=== PATIENT | male | born 1955 | race Caucasian/White ===

== ENCOUNTER → 2023-12-17 11:43 | Outpatient (REF) | payer OTHER, SELFPAY ==
[2023-12-17 15:36] LABS: % Basophils 0.9 % (0-2); % Eosinophils 0.9 % (0-6); % Immature Granulocytes 0.2 % (0-0.5); % Monocytes 8.7 % (1.7-9.3); % Neutrophils 58.3 % (42.2-75.2); Absolute Lymphocytes 1.4 10^3/uL (1.2-3.4); Absolute Monocytes 0.4 10^3/uL (0.1-0.6); Absolute Neutrophils 2.5 10^3/uL (1.4-6.5); Hematocrit 39.2 % (39.0-52.0); Mean Corp Hgb Conc. 35.7 g/dL (33.0-37.0); Mean Corpuscular Hgb 31.5 pg (27.0-31.0); Mean Corpuscular Volume 88.1 fL (80.0-94.0); Mean Platelet Volume 11.4 fL (7.4-10.4); Nucleated Red Blood Cells % 0 % (-); Platelet Count 199 10^3/uL (130-400); Red Blood Cell Count 4.45 10^6/uL (4.70-6.10); Red Cell Dist. Width 12.8 % (11.5-14.5); White Blood Cell Count 4.4 10^3/uL (4.8-10.8)
[2023-12-17 15:45] LABS: ALT (SGPT) 48 U/L (0-50); AST (SGOT) 42 U/L (17-59); Albumin 4.4 g/dl (3.5-5.0); Alkaline Phosphatase 89 U/L (38-126); Blood Urea Nitrogen 18 mg/dl (9-20); Calcium 9.3 mg/dl (8.4-10.2); Carbon Dioxide 28 mmol/L (22-30); Chloride 102 mmol/L (98-107); Glucose 102 mg/dl (70-99); HDL Cholesterol 65 mg/dl; LDL Cholesterol, Calculated 85 mg/dl; Potassium 3.1 mmol/L (3.5-5.1); Sodium 136 mmol/L (135-145); Total Bilirubin 0.9 mg/dl (0.2-1.3); Total Cholesterol 189 mg/dl (50-199); Total Protein 7.3 g/dl (6.3-8.2); Triglyceride 195 mg/dl (10-149); Very Low Density Lipoprotein 39 mg/dl (0-30); eGFR > 60.00
[2023-12-17 16:18] LABS: PSA, Total - Screen 9.26 ng/ml (0.0-4.0); TSH Reflex To Free T4 2.76 uIU/ml (0.47-4.68)
== END ==
LOC: HWLAB 11:43
PROVIDERS: ATTENDING PHYSICIAN Internal Medicine
DX: I25.10 Atherosclerotic heart disease of native coronary artery without angina pectoris (principal); Z12.5 Encounter for screening for malignant neoplasm of prostate; I10 Essential (primary) hypertension; E78.5 Hyperlipidemia, unspecified; Z00.00 Encounter for general adult medical examination without abnormal findings
CPT/HCPCS: 36415; 80053; 80061; 84443; 85025; G0103

== ENCOUNTER → 2024-02-20 12:59 | Outpatient (REF) | payer OTHER, SELFPAY | LOC: RAD 12:59 | PROVIDERS: ATTENDING PHYSICIAN Urology; FAMILY PHYSICIAN Internal Medicine; REFERRING PHYSICIAN Specialist | DX: S05.50XA Penetrating wound with foreign body of unspecified eyeball, initial encounter (principal) | CPT/HCPCS: 70030 ==

== ENCOUNTER → 2024-02-26 08:29 | Outpatient (REF) | payer OTHER, SELFPAY | LOC: MRI 3T 08:29 | PROVIDERS: ATTENDING PHYSICIAN Specialist; FAMILY PHYSICIAN Internal Medicine | DX: R97.20 Elevated prostate specific antigen [PSA] (principal) | CPT/HCPCS: 72197; A9575 ==

== ENCOUNTER 2024-03-13 06:08 | Day surgery (SDC) | payer OTHER, SELFPAY ==
--- NOTE | 2024-03-11 11:13 | CM ---
Patient is scheduled for a Robotic Prostatectomy on 03/13/24. Spoke with patient prior to surgery via telephone to complete case management assessment and assess for discharge planning needs. Patient reports that he lives alone in a one story
apartment. There are no steps to enter. He currently functions independently. He has no DME and has never had VN services. He has a prescription plan and uses [facility] in [place].
PCP is Shayna Toledo
Discussed discharge plans. Patient plans to return home at discharge. He states that either his daughter or sister will likely spend his first night home with him. He has no discharge planning concerns at this time. Discussed possible need for VN
services and he does not feel that services will be needed.
--- NOTE | 2024-03-11 13:33 | PTCARENOTE ---
Patients 12/16 potassium 3.1, Reviewed by Dr White whom suggested patient could use potassium supplement and labs to be repeated AM of surgery. Porsche @ Dr. Flores office notified of same and Dr. White suggestions forwarded.
[2024-03-13] VITALS (13 sets, daily range): BP systolic 109–135; BP diastolic 61–80; BMI 29.8
[2024-03-13 07:04] LABS: Potassium 3.7 mmol/L (3.5-5.1)
[2024-03-13 07:05] LABS: INR 1.01; PT 13.3 Sec (11.4-14.6)
[2024-03-13 07:06] LABS: APTT 29.9 Sec (23.4-35.0)
[2024-03-13] MEDS: NORMOSOL-R 1000 IV (07:06)
[2024-03-13] MEDS: DILAUDID 0.25 MG IV (13:18)
[2024-03-13 13:42] LABS: Hematocrit 36.6 % (39.0-52.0); Hemoglobin 13.1 g/dL (13.0-18.0)
[2024-03-13 13:56] LABS: Blood Urea Nitrogen 15 mg/dl (9-20); Calcium 8.5 mg/dl (8.4-10.2); Carbon Dioxide 27 mmol/L (22-30); Chloride 105 mmol/L (98-107); Estimated Creatinine Clearance 70 ml/min; Glucose 130 mg/dl (70-99); Potassium 4.1 mmol/L (3.5-5.1); Sodium 140 mmol/L (135-145); eGFR > 60.00
[2024-03-13] MEDS: TORADOL 15 MG IV ×2 (14:04→20:15)
[2024-03-13] MEDS: NSS 1000 IV ×2 (14:07→22:24)
[2024-03-13] MEDS: PERCOCET 5/325 1 TABLET PO (18:33)
[2024-03-13] MEDS: TYLENOL 650 MG PO (18:34)
[2024-03-13] MEDS: DETROL LA 4 MG PO (18:35)
[2024-03-13] MEDS: COREG 12.5 MG PO (20:14)
[2024-03-13] MEDS: SENOKOT 8.59999999999999964 MG PO (20:15)
[2024-03-14] MEDS: TORADOL 15 MG IV ×2 (02:05→09:46)
[2024-03-14 02:50] VITALS: BP 115/68
[2024-03-14 07:15] VITALS: BP 123/73
[2024-03-14 08:24] LABS: Hematocrit 33.4 % (39.0-52.0); Hemoglobin 11.3 g/dL (13.0-18.0); Mean Corp Hgb Conc. 33.8 g/dL (33.0-37.0); Mean Corpuscular Hgb 30.7 pg (27.0-31.0); Mean Corpuscular Volume 90.8 fL (80.0-94.0); Mean Platelet Volume 10.8 fL (7.4-10.4); Platelet Count 167 10^3/uL (130-400); Red Blood Cell Count 3.68 10^6/uL (4.70-6.10); Red Cell Dist. Width 12.6 % (11.5-14.5); White Blood Cell Count 11.6 10^3/uL (4.8-10.8)
[2024-03-14 08:52] LABS: Blood Urea Nitrogen 13 mg/dl (9-20); Calcium 7.6 mg/dl (8.4-10.2); Carbon Dioxide 24 mmol/L (22-30); Chloride 102 mmol/L (98-107); Estimated Creatinine Clearance 88 ml/min; Glucose 191 mg/dl (70-99); Sodium 136 mmol/L (135-145); eGFR > 60.00
[2024-03-14] MEDS: COZAAR 100 MG PO (09:45)
[2024-03-14] MEDS: NORVASC 10 MG PO (09:45)
[2024-03-14] MEDS: ZETIA 10 MG PO (09:45)
[2024-03-14] MEDS: COREG 12.5 MG PO (09:45)
[2024-03-14] MEDS: SENOKOT 8.59999999999999964 MG PO (09:45)
[2024-03-14] MEDS: LIPITOR 80 MG PO (09:45)
[2024-03-14] MEDS: ASPIR LOW (ENTERIC COATED) 81 MG PO (09:45)
[2024-03-14] MEDS: ORETIC 25 MG PO (09:46)
--- NOTE | 2024-03-14 10:26 | CM ---
CM following re: discharge planning.
Reviewed pt's chart, met with pt. Pt's daughter and pt's sister at bedside.
Pt is a 69 year old male, admitted with WIC POD #1 s/p robotic prostatectomy.
Pt reports he lives alone in an apartment, no steps, has 2 supportive children, supportive sister and a friend. Pt described himself as independent in all areas [employer], drives. No DME, VN or SNF history.
CM consulted to arrange VN services for ostomy care. CM discussed it with pt, pt expressed his agreement. A list of VN vendors provided. Pt preferred [facility]. A referral to [facility]N made.
Pt is aware he will be discharged home today and he expressed his agreement. Pt's daughter stated she will transport pt home.
PCP: Janice Toledo
Pharmacy: [facility]
Please fax discharge instructions to [facility] at [phone]
D/C plan: home with [place] [facility]N and family support. Daughter to transport.
No other discharge needs identified.
[2024-03-14 11:10] VITALS: BP 117/64
--- NOTE | 2024-03-14 12:08 | W.PN.URO.CBU ---
Today's Communication / Plan
-
Discharge
Assessment / Plan
-
69M s/p robotic prostatectomy 03/13
- Regular diet
- Ambulate
- Discharge home with walker in place
- VN for walker care
Diagnosis
-
Date of Service: March 14, 2024
-
Patient Diagnosis:Prostate cancer
Post Op Day: s/p RALP/PLND 03/13
Subjective
-
Feeling well
pain controlled
minimal hematuria
ambulated
tolaterating diet
Objective
-
Vital Signs
Temp Pulse Resp BP Pulse Ox
97.6 F 66 18 117/64 95
03/14/24 11:10 03/14/24 11:10 03/14/24 11:10 03/14/24 11:10 03/14/24 11:10
Intake and Output
03/13/24 03/14/24 03/15/24
06:59 06:59 06:59
Intake Total 2940 / 2940
Output Total 2325 / 2325
Balance 615 / 615
Intake:
Oral fluids 540 / 540
IV fluids (Total) 2400 / 2400
Normosal 400 / 400
Output:
Urine, Walker 2325 / 2325
Laboratory Results
03/14/24 07:52
03/14/24 07:52
Physical Exam
-
General - well developed, well nourished, no acute distress
Chest - clear
Abdomen - soft, non-tender
- walker in place, light red urine without clots
Skin - warm & dry with no rash
Neuro - AOx3, no motor deficits
Extremities - no clubbing, no cyanosis, no edema
Incision - clean, dry
Dressing - clean, dry, intact
== END 2024-03-14 13:20 | disposition home or self-care (01) ==
LOC: SDS 06:08
PROVIDERS: Anesthesiology; ATTENDING PHYSICIAN Urology
DX: C61 Malignant neoplasm of prostate (principal)
CPT/HCPCS: 55866; 38571; 88305; 88307; 88309; 88332; 80048; 84132; 85014; 85018; 85027; 85610; 85730; 86850; 86900; 86901; 88331

== ENCOUNTER → 2024-04-16 13:32 | Outpatient (REF) | payer OTHER, SELFPAY ==
[2024-04-18 16:12] LABS: PSA, Ultrasensitive 0.02 ng/mL (0.00-4.00)
== END ==
LOC: HWLAB 13:32
PROVIDERS: ATTENDING PHYSICIAN Urology; FAMILY PHYSICIAN Internal Medicine
DX: C61 Malignant neoplasm of prostate (principal)
CPT/HCPCS: 36415; 84153

== ENCOUNTER 2024-04-22 13:12 | Outpatient (RCR) | payer OTHER, SELFPAY | END 2024-04-22 23:59 | disposition home or self-care (01) | LOC: RPT 13:12 | PROVIDERS: ATTENDING PHYSICIAN Urology; FAMILY PHYSICIAN Internal Medicine | DX: M62.89 Other specified disorders of muscle (principal); C61 Malignant neoplasm of prostate; N39.3 Stress incontinence (female) (male); Z73.6 Limitation of activities due to disability | CPT/HCPCS: 97112; 97162; 97530 ==

== ENCOUNTER 2024-05-22 12:54 | Outpatient (RCR) | payer OTHER, SELFPAY | END 2024-05-22 23:59 | disposition home or self-care (01) | LOC: RPT 12:54 | PROVIDERS: ATTENDING PHYSICIAN Urology; FAMILY PHYSICIAN Internal Medicine | DX: C61 Malignant neoplasm of prostate (principal); M62.89 Other specified disorders of muscle; N39.3 Stress incontinence (female) (male); Z73.6 Limitation of activities due to disability | CPT/HCPCS: 97112; 97530 ==

== ENCOUNTER → 2024-07-16 12:17 | Outpatient (REF) | payer OTHER, SELFPAY | LOC: HWLAB 12:17 | PROVIDERS: ATTENDING PHYSICIAN Urology; FAMILY PHYSICIAN Internal Medicine | DX: C61 Malignant neoplasm of prostate (principal) | CPT/HCPCS: 36415; 84153 ==

== ENCOUNTER → 2024-12-15 08:58 | Outpatient (REF) | payer OTHER, SELFPAY ==
[2024-12-15 11:27] LABS: % Eosinophils 0.8 % (0-6); % Immature Granulocytes 0.3 % (0-0.5); % Lymphocytes 20.2 % (20.5-51.1); % Monocytes 11.1 % (1.7-9.3); % Neutrophils 66.6 % (42.2-75.2); Absolute Lymphocytes 0.8 10^3/uL (1.2-3.4); Absolute Monocytes 0.4 10^3/uL (0.1-0.6); Absolute Neutrophils 2.7 10^3/uL (1.4-6.5); Hematocrit 42.7 % (39.0-52.0); Hemoglobin 14.8 g/dL (13.0-18.0); Mean Corp Hgb Conc. 34.7 g/dL (33.0-37.0); Mean Corpuscular Hgb 31.6 pg (27.0-31.0); Mean Platelet Volume 11.2 fL (7.4-10.4); Nucleated Red Blood Cells % 0 % (-); Platelet Count 193 10^3/uL (130-400); Red Blood Cell Count 4.69 10^6/uL (4.70-6.10)
[2024-12-15 11:36] LABS: ALT (SGPT) 43 U/L (0-50); AST (SGOT) 31 U/L (17-59); Albumin 4.1 g/dl (3.5-5.0); Alkaline Phosphatase 97 U/L (38-126); Blood Urea Nitrogen 12 mg/dl (9-20); Calcium 9.8 mg/dl (8.4-10.2); Carbon Dioxide 38 mmol/L (22-30); Chloride 99 mmol/L (98-107); Glucose 122 mg/dl (70-99); HDL Cholesterol 59 mg/dl; LDL Cholesterol, Calculated 56 mg/dl; Potassium 3.4 mmol/L (3.5-5.1); Sodium 140 mmol/L (135-145); Total Cholesterol 139 mg/dl (50-199); Total Protein 6.8 g/dl (6.3-8.2); Triglyceride 123 mg/dl (10-149); Very Low Density Lipoprotein 24 mg/dl (0-30); eGFR > 60.00
== END ==
LOC: HWLAB 08:58
PROVIDERS: ATTENDING PHYSICIAN Internal Medicine
DX: Z00.00 Encounter for general adult medical examination without abnormal findings (principal); I25.10 Atherosclerotic heart disease of native coronary artery without angina pectoris; I10 Essential (primary) hypertension; E78.5 Hyperlipidemia, unspecified; E66.09 Other obesity due to excess calories; Z68.30 Body mass index [BMI] 30.0-30.9, adult; Z85.46 Personal history of malignant neoplasm of prostate
CPT/HCPCS: 36415; 80053; 80061; 85025

== ENCOUNTER → 2025-02-09 10:44 | Outpatient (REF) | payer OTHER, SELFPAY ==
[2025-02-12 09:41] LABS: PSA, Ultrasensitive <0.01 ng/mL (0.00-4.00)
== END ==
LOC: HWLAB 10:44
PROVIDERS: ATTENDING PHYSICIAN Urology; FAMILY PHYSICIAN Internal Medicine
DX: C61 Malignant neoplasm of prostate (principal)
CPT/HCPCS: 36415; 84153

== ENCOUNTER → 2025-04-14 09:11 | Outpatient (REF) | payer OTHER, SELFPAY | LOC: HWRCS 09:11 | PROVIDERS: ATTENDING PHYSICIAN Internal Medicine Cardiovascular Disease; FAMILY PHYSICIAN Internal Medicine | DX: I25.10 Atherosclerotic heart disease of native coronary artery without angina pectoris (principal) | CPT/HCPCS: 93306 ==

== ENCOUNTER → 2025-08-03 13:03 | Outpatient (REF) | payer OTHER, SELFPAY | LOC: HWLAB 13:03 | PROVIDERS: ATTENDING PHYSICIAN Urology; FAMILY PHYSICIAN Internal Medicine | DX: C61 Malignant neoplasm of prostate (principal) | CPT/HCPCS: 36415; 84153 ==